=== PATIENT | female | born 1990 | race Caucasian/White ===

== ENCOUNTER 2018-11-06 12:56 | Inpatient (IN) | payer OTHER ==
[2018-11-06] VITALS (9 sets, daily range): BP systolic 133–153; BP diastolic 72–82
[~2018-11-06] VITALS: Ht 152.4 cm; Wt 63.2 kg
[2018-11-06] MEDS ORDERED: LR 1,000 ML IV SCH (13:28)
[2018-11-06] MEDS ORDERED: OXYTOCIN DRIP 30 UNITS in IV 1 EA IV SCH (13:33)
[2018-11-06] MEDS ORDERED: PRENTAB9 PO (13:36)
[2018-11-06] MEDS ORDERED: ACETAMINOPHEN 500 MG TAB PO PRN (13:45)
[2018-11-06] MEDS ORDERED: MEASLES,MUMPS,RUBELLA VACCINE INJ (MMR-II) (90707) SC SCH (13:45)
[2018-11-06] MEDS ORDERED: IBUPROFEN 600 MG TAB PO PRN (13:45)
[2018-11-06] MEDS ORDERED: METHYLERGONOVINE MALEATE 0.2 MG TAB PO PRN (13:45)
[2018-11-06] MEDS ORDERED: ACETAMINOPHEN TAB 650MG DOSE (2X325MG) PO PRN (13:45)
[2018-11-06] MEDS ORDERED: LIDOCAINE 1% MDV 20ML VIAL IM ONE (13:45)
[2018-11-06] MEDS ORDERED: DIBUCAINE 1% OINTMENT 30GM TOP PRN (13:45)
[2018-11-06] MEDS ORDERED: RHOGAM 300 MCG (1500 IU) INJ (J2790) IM SCH (13:45)
[2018-11-06] MEDS ORDERED: DOCUSATE SODIUM 100 MG CAP PO PRN (13:45)
[2018-11-06] MEDS ORDERED: OXYTOCIN 30 UNITS IN 0.9% NaCl 500ML IV BAG (J2590) As Ordered ONE (13:49)
[2018-11-06 14:08] LABS: BASO % 0.2 % (0.0-1.0); EOS % 0.1 % (0.0-3.0); HEMATOCRIT 40.7 % (36.0-47.0); HEMOGLOBIN 13.6 g/dl (12.0-15.5); LYMPH # 1.5 10^3/uL (1.5-5.0); LYMPH % 7.8 % (24.0-44.0); MEAN CORPUSCULAR HEMOGLOBIN 27.3 pg (27.0-33.0); MEAN CORPUSCULAR HGB CONC 33.4 g/dl (32.0-36.5); MEAN CORPUSCULAR VOLUME 81.7 fl (80.0-96.0); MONO # 0.7 10^3/uL (0.0-0.8); MONO % 3.6 % (0.0-5.0); NEUTROPHILS # 16.9 10^3/uL (1.5-8.5); NEUTROPHILS % 87.7 % (36.0-66.0); PLATELET COUNT, AUTOMATED 228 10^3/uL (150-450); RED BLOOD COUNT 4.98 10^6/uL (4.00-5.40); WHITE BLOOD COUNT 19.3 10^3/uL (4.0-10.0)
--- NOTE | 2018-11-06 15:20 | HPEPDOC ---
Obstetrical History & Physical General Date of Admission Nov 06, 2018 at 13:25 History of Present Illness H&P completed after delivery due to rapid progression. OB Considerations: - GDMA1 - Rh Negative: received RhoGAM at 28wks Sadia is a 28yo G1 at 40+2wks by 8wk US (WILLIAM [id number]) presents in labor. She reports contractions started at 0500AM this morning [id number]. She reports that they are closer together, every 2-5mins and feels rectal pressure. course complicated by the above problems. Dstick on admission 96. She denies LOF, however, water broke after moving to labor room. Chief Complaint: Contractions, term Information Provided By: Patient Age: 28 : 1 Term: 0 Pre-term: 0 Abortions: 0 Livin Care Care: Good Care Dating Final EDC: Nov 04, 2018 Antepartum Course Diagnos(e)s Gestational Diabetes, A1 RH negative Past Medical History Past Obstetrical History : Past Obstetrical History: Primgravida Past Medical History Medical History Childhood Asthma Seasonal Allergies Endometriosis Surgical History: [place] teeth Family History Significant Family History: No pertinent family hx Social History Marital Status: Family situation: Spouse/partner home Psychosocial History: No pertinent psych hx * Smoker: non-smoker Alcohol: Denies Drugs: denies Imunizations Tdap status: current Influenza Status: declined Allergies Coded Allergies: No Known Allergies (Verified Allergy, Unknown, 11/06/18) Medications Scheduled No.137/Iron/Folic Acd ( Vitamin Tablet) 1 Each Tablet, 1 TAB PO DAILY Physical Examination Physical Examination GENERAL: Alert and oriented times three. ABDOMEN: Gravid and non-tender to touch. FETUS: Is vertex (VTX) by sterile vaginal examination (SVE), fetus is vertex (VTX) by Bi. EXTREMITIES: No edema. Laboratory Data 24H LABS Laboratory Tests 2 11/06/18 13:31: Serology Scanned Report Hepatitis B Testing Urine Culture: No Growth Pertinent Laboratoy Data Blood Type: O- RBC Antibody Screen: Negative HIV: Negative Hepatitis B: Negative Hepatitis C: Unknown Rapid Plasma Reagin: Nonreactive Rubella: Immune Varicella: Immune Chlamydia/Gonorrhea: Negative Group B Streptococcus: Negative Quad Screen Test: Negative Cystic Fibrosis: Unknown Anatomy Ultrasound Placenta Location: Anterior Normal Anatomy: Yes Placenta Previa: No Estimated Weight (grams): 3400 Other Ultrasounds [id number] Steroid Therapy Steroid Therapy: No Vaginal Examination Dilation: 7 cm Effacement: 90% Station: 0 Cervical Consistency: Soft Cervical Position: Middle Presentation: Cephalic presentation Position: Vertex (occiput) Assessment Heart Rate (FHR): 120 Variability: Moderate Accelerations: Positive Decelerations: None Tocometer Contractions: Yes Frequency: regular, every 1-3 min. Duration: greater than 60 seconds Strength: palpated as strong Multi-drug resistant Organism: No history of MDRO Assessment/Plan Assessment [Sadia] is a [28]-year-old (G)[1] para (P)[0]-[0]-[0]-[0] at [40]+[2] weeks by [8]-week ultrasound. Presents to Labor and Delivery (L&D) [in active labor]. She proceed to deliver after moving to labor room. For details, see delivery summary. Plan Admit and orient. Patient Consumer Marketer and consent. Verbally. Diet: [Regular after delivery]. Group B Streptococcus (GBS) [negative]. Labs and intravenous (IV) per unit protocol. Lactated Ringers (LR): [125] mL/hr. Delivered Male infant [Gaetano]. Unasyn 1.5mg x1. 20ml of 1% lidocaine plain. Routine care and orders. Cinthia Magdaleno DO. CINTHIA MAGDALENO DO Nov 06, 2018 15:12
--- NOTE | 2018-11-06 15:38 | DNPDOC ---
[facility] Delivery Note Delivery Note DATE OF DELIVERY: [[id number]] PREDELIVERY DIAGNOSIS: [40]-[2]/7 weeks' gestation and labor. POST DELIVERY DIAGNOSIS: Delivered. PROCEDURE: [Spontaneous vaginal delivery/ section]. FUR MIXER: Dr. Mccormack] ANESTHESIA: [None]. ESTIMATED BLOOD LOSS: [200] mL. FINDINGS: [3520] grams [male] , Score [8]/[9], nuchal cord times [1 - Loose, spontaneous reduced]. DELIVERY SUMMARY: Patient is a [28]-year-old [1] now para [1]-[0]-[0]-[1] who was admitted to labor and delivery for [labor]. She presented in active labor and quickly proceed to C/C/+2. She then pushed, to +3. Due to tight introitus and infant heart rate down to the 70-80s, a midline episiotomy was performed which resulted in delivery over the next contraction. Infant delivered OA, restituted SUHA. Loose nuchal x1, spontaneously reduce during delivery of the body. Left anterior shoulder delivered with gentle downward traction and the rest of the body delivered spontaneously and placed on maternal abdomen. Infant cried spontaneously. Delayed cord clamping was observed, the cord was doubly clamped, and cut by father of . Cord blood was collected per protocol. The placenta was delivered, tono, 3vc, intact, with gentle downward traction. Systematic inspection of the perineum was performed and a midline 3A vaginal lac eration and bilateral sulcal lacerations. 20ml of 1% Lidocaine was injected along the lacerations. 0-Vicryl was used to re-enforce sphincter capsule and to close deep right gluteal space. The sulcal lacerations were repaired with 3-0 vicryl, running locking fashion. The 2nd degree was repair with 3-0 vicryl in usual fashion. Dr. Myles was present and assisted with the repair. Good reapproximation was noted. Mother and baby stable and bonding when physician left the room. EBL 200cc Lap and Needle counts were correct x2. KALINA MAGDALENO. DO Nov 06, 2018 15:38
[2018-11-06] MEDS ORDERED: AMPICILLIN SOD/SULBACTAM SOD 1.5 GM in D5W MINI-BAG PLUS 50 ML IV ONE (16:00)
[2018-11-06] MEDS ORDERED: SLF 3 ML SYR IV PRN (16:45)
[2018-11-06 18:31] LABS: ALT/SGPT 16 U/L (12-78); BILIRUBIN,TOTAL 0.4 MG/DL (0.2-1.0); CREATININE FOR GFR 0.63 MG/DL (0.55-1.30); GLOMERULAR FILTRATION RATE > 60.0 (>60); LDH LACTATE DEHYDROGENASE 242 U/L (84-246); URIC ACID 4.7 MG/DL (2.6-6.0)
[2018-11-06] MEDS: IBUPROFEN 800 MG TAB PO PRN (19:20)
[2018-11-06] MEDS: MIRALAX *UNIT DOSE* 17GM PACKET PO SCH (21:03)
[2018-11-06] MEDS ORDERED: SLF 3 ML SYR IV SCH (22:00)
--- NOTE | 2018-11-07 04:56 | IPNPDOC ---
Progress Note Date of Service: Nov 07, 2018 Day#: 1 Progress Note SUBJECT: Sadia is a [28]-year-old [1] now Para [1]-[0]-[0]-[1] status post spontaneous vaginal delivery complicated by a 3A vaginal laceration after midline episiotomy at [40]-[2]/7 weeks' on [id number] of a [Male] [3520] grams with post vaginal laceration and repair, doing well day # [1]. She has been ambulating, voiding spontaneously without issue and tolerating regular diet. Breast feeding without issue. Reports lochia is [like a normal period]. Patient is ambulating well. [Reports some cramping with . Denies any pain. Voiding and passing flatus without difficulty]. OBJECTIVE: VITAL SIGNS: Within normal limits, afebrile. Alert and oriented times three. Breath sounds clear to auscultation. Heart rate: Regular rate and rhythm, no murmurs, rubs or gallops. Abdomen: Fundus firm at U-1. Soft, NTTP. : [Minimal] lochia. Labial edema noted, intact suture line without evidence of hematoma. ASSESSMENT: Sadia is a [28]-year-old [1] now Para [1]-[0]-[0]-[1] status post spontaneous vaginal delivery complicated by a 3A vaginal laceration after midline episiotomy after presenting in active labor, delivered on 06Nov2018 and [40]-[2]/7 weeks', doing well on day [1]. Vitals within normal limits, afebrile, hemodynamically stable with no evidence of infection. Had mild range blood pressures when she presented in labor, unmedicated. Labs obtained were WNL. After delivery, patient is now normotensive. PLAN: 1. Continue routine care and oralia-care. 2. Tylenol and Motrin for pain. 3. Encourage breast feeding and ambulation. 4. [Considering Mirena IUD] for contraception at 6 weeks . 5. Continue Miralax BID for soft bowel movements. 6. Discharge to home tomorrow 08Nov2018. VS, I&O, 24H, Fishbone Vital Signs/I&O Vital Signs Date Time Temp Pulse Resp B/P (MAP) Pulse Ox O2 Delivery O2 Flow Rate FiO2 11/06/18 18:00 98.3 95 14 135/78 (97) 98 I&O- Last 24 Hours up to 6 AM 11/07/18 05:59 Intake Total 800 ml Output Total 700 ml Balance 100 ml Laboratory Data 24H LABS Laboratory Tests 2 11/06/18 13:31: Serology Scanned Report Hepatitis B Testing 11/06/18 13:51: Immature Granulocyte % (Auto) 0.6, White Blood Count 19.3H, Red Blood Count 4.98, Hemoglobin 13.6, Hematocrit 40.7, Mean Corpuscular Volume 81.7, Mean Corpuscular Hemoglobin 27.3, Mean Corpuscular Hemoglobin Concent 33.4, Red Cell Distribution Width 15.7H, Platelet Count 228, Neutrophils (%) (Auto) 87.7H, Lymphocytes (%) (Auto) 7.8L, Monocytes (%) (Auto) 3.6, Eosinophils (%) (Auto) 0.1, Basophils (%) (Auto) 0.2, Neutrophils # (Auto) 16.9H, Lymphocytes # (Auto) 1.5, Monocytes # (Auto) 0.7, Eosinophils # (Auto) 0.0, Basophils # (Auto) 0.0, Nucleated Red Blood Cells % (auto) 0.0, Glomerular Filtration Rate > 60.0, Creatinine 0.63, Aspartate Amino Transf (AST/SGOT) 21, Alanine Aminotransferase (ALT/SGPT) 16, Lactate Dehydrogenase 242, Total Bilirubin 0.4, Uric Acid 4.7 11/06/18 13:56: Bedside Glucose (Misc Panel) 96 CBC/BMP Laboratory Tests 11/06/18 13:51 Red Blood Count 4.98, Mean Corpuscular Volume 81.7, Mean Corpuscular Hemoglobin 27.3, Mean Corpuscular Hemoglobin Concent 33.4, Red Cell Distribution Width 15.7 H, Neutrophils (%) (Auto) 87.7 H, Lymphocytes (%) (Auto) 7.8 L, Monocytes (%) (Auto) 3.6, Eosinophils (%) (Auto) 0.1, Basophils (%) (Auto) 0.2, Neutrophils # (Auto) 16.9 H, Lymphocytes # (Auto) 1.5, Monocytes # (Auto) 0.7, Eosinophils # (Auto) 0.0, Basophils # (Auto) 0.0, Aspartate Amino Transf (AST/SGOT) 21, Alanine Aminotransferase (ALT/SGPT) 16, Lactate Dehydrogenase 242, Total Bilirubin 0.4, Uric Acid 4.7 KALINA MAGDALENO DO Nov 07, 2018 04:56
[2018-11-07] MEDS: IBUPROFEN 800 MG TAB PO PRN ×2 (06:09→17:50)
[2018-11-07 06:11] VITALS: BP 121/68
[2018-11-07 07:27] LABS: HEMATOCRIT 33.6 % (36.0-47.0); MEAN CORPUSCULAR HEMOGLOBIN 28.5 pg (27.0-33.0); MEAN CORPUSCULAR HGB CONC 33.6 g/dl (32.0-36.5); MEAN CORPUSCULAR VOLUME 84.8 fl (80.0-96.0); PLATELET COUNT, AUTOMATED 151 10^3/uL (150-450); RED BLOOD COUNT 3.96 10^6/uL (4.00-5.40); WHITE BLOOD COUNT 18.9 10^3/uL (4.0-10.0)
[2018-11-07 07:38] LABS: HEMOGLOBIN 11.3 g/dl (12.0-15.5)
[2018-11-07] MEDS: PRENATAL VITAMINS CHEWABLE TABLET PO SCH (09:04)
[2018-11-07] MEDS: MIRALAX *UNIT DOSE* 17GM PACKET PO SCH ×2 (09:20→23:09)
[2018-11-07] MEDS ORDERED: IBUP80TA PO (21:38)
[2018-11-07] MEDS ORDERED: MIRA3350 PO (21:38)
[2018-11-07] MEDS ORDERED: APAP325T4 PO (21:38)
[2018-11-08] MEDS: IBUPROFEN 800 MG TAB PO PRN (05:24)
[2018-11-08 05:42] VITALS: BP 131/73
[2018-11-08] MEDS ORDERED: PRENTAB9 PO (07:10)
--- NOTE | 2018-11-08 07:39 | OBDS ---
[facility] Obstetrical Discharge Sum. Obstetrical Discharge Summary Life Enrichment Manager/Provider: KALINA MAGDALENO DO Date: Nov 08, 2018 Time: 07:32 : 1 Term: 1 Pre-term: 0 Abortions: 0 Livin VDRL: Non-Reactive Rh: Negative Rubella: Immune Infant Sex: Male Weight: grams (3520) Anesthesia: Local Anesthesia Episiotomy Midline A/P, Post Course List any complications Admission diagnosis: Active Labor at Term. Discharge diagnosis: Active Labor at Term. Single Live . Condition at Discharge: [good] Discharge Instructions: [Home] Activity: [Regular] Diet: [Regular] Medications: [Ibuprofen, Tylenol, Miralax] Follow-up: [2 weeks for incision check, 6 weeks ] Hospital Course: Sadia is a [28]-year-old [1] now Para [1]-[0]-[0]-[1] status post spontaneous vaginal delivery complicated by a 3A vaginal laceration after midline episiotomy at [40]-[2]/7 weeks' on 06Nov2018 of a [Male] [3520] grams. She have an uncomplicated course. She is ambulating and tolerating a regular diet. She remained afebrile throughout the hospital stay and met all criteria for discharge on day 2. OBJECTIVE: VITAL SIGNS: Within normal limits, afebrile. Alert and oriented times three. Abdomen: Fundus firm at U-1. Soft, NTTP. : [Minimal] lochia. Labial edema noted - significant improved, intact suture line without evidence of hematoma. DO SHARLA Bryan CRYSTAL B. DO Nov 08, 2018 07:39
[2018-11-08] MEDS: MIRALAX *UNIT DOSE* 17GM PACKET PO SCH (08:45)
[2018-11-08] MEDS: PRENATAL VITAMINS CHEWABLE TABLET PO SCH (08:45)
--- NOTE | 2018-11-15 11:15 | IPN ---
DATE OF SERVICE: 11/06/2018 This patient requested circumcision of her male . After discussing the risks and benefits of circumcision, the medical and nonmedical indications, penile block and aftercare, expressed understanding of penile block aftercare and bleeding, signed the consent form. All questions were answered. 20-minute discussion. We await clearance by the bottom cager.
== END 2018-11-08 12:00 | disposition home or self-care (01) | DRG 768 ==
LOC: M LDO 12:56 → M LDI 13:25 → M OBS 17:11 → M PED 11-07 20:00
PROVIDERS: ADMIT Obstetrics & Gynecology; ATTEND Obstetrics & Gynecology
PROC: 0DQR0ZZ Repair Anal Sphincter, Open Approach (ICD-10-PCS; principal; 2018-11-06)
PROC: 10E0XZZ Delivery of Products of Conception, External Approach (ICD-10-PCS; 2018-11-06)
PROC: 0KQM0ZZ Repair Perineum Muscle, Open Approach (ICD-10-PCS; 2018-11-06)
PROC: 0W8NXZZ Division of Female Perineum, External Approach (ICD-10-PCS; 2018-11-06)
DX: O48.0 Post-term pregnancy (principal); Z37.0 Single live birth; O70.21 Third degree perineal laceration during delivery, IIIa; Z3A.40 40 weeks gestation of pregnancy; O69.81X0 Labor and delivery complicated by cord around neck, without compression, not applicable or unspecified; O62.3 Precipitate labor; O70.1 Second degree perineal laceration during delivery; O24.420 Gestational diabetes mellitus in childbirth, diet controlled

== ENCOUNTER 2019-01-05 19:38 | Emergency (ER) | payer OTHER ==
[~2019-01-05] VITALS: Ht 152.4 cm; Wt 52.3 kg
[~2019-01-05 19:38] MED LIST: APAP325T4 PO; IBUP80TA PO; MIRA3350 PO; PRENTAB9 PO
[2019-01-05] MEDS ORDERED: MIRE1IUD IU (19:46)
[2019-01-05] MEDS ORDERED: TETRACAINE 0.5% OPHTH SOLN 4ML OU ONE (20:15)
[2019-01-05] MEDS ORDERED: FLUORESCEIN OPHTH 1 MG STRIP OU ONE (20:15)
[2019-01-05] MEDS ORDERED: PATA2.5S OD (20:48)
[2019-01-05] MEDS ORDERED: OLOPATADINE 0.1% OPHTH SOL 5ML(PATANOL) OD STA (20:53)
[2019-01-05 21:12] VITALS: BP 113/71
== END 2019-01-05 21:17 | disposition home or self-care (01) ==
LOC: M ED 19:38
DX: H11.421 Conjunctival edema, right eye (principal)

== ENCOUNTER 2020-04-14 13:38 | Emergency (ER) | payer OTHER ==
[~2020-04-14] VITALS: Ht 152.4 cm; Wt 55.8 kg
[~2020-04-14 13:38] MED LIST changes: +MIRE1IUD IU; +PATA2.5S OD
--- OUTSIDE RECORDS SUMMARY | 2020-04-14 13:45 | CCD ---
Author Author [facility] Organization [facility] Address Unknown Phone Unavailable Support Name Relationship Address Phone WATNANIMAL Next Of Kin [address] [place] [address] [place] Next Of Kin [address] [place] [address] Re-disclosure Warning The records that you are about to access may contain information from federally-assisted alcohol or drug abuse programs. If such information is present, then the following federally mandated warning applies: This information has been disclosed to you from records protected by federal confidentiality rules (42 CFR part 2). The federal rules prohibit you from making any further disclosure of this information unless further disclosure is expressly permitted by the written consent of the person to whom it pertains or as otherwise permitted by 42 CFR part 2. A general authorization for the release of medical or other information is NOT sufficient for this purpose. The Federal rules restrict any use of the information to criminally investigate or prosecute any alcohol or drug abuse patient.The records that you are about to access may contain highly sensitive health information, the redisclosure of which is protected by Article 27-F of the [facility] Public Health law. If you continue you may have access to information: Regarding HIV / AIDS; Provided by facilities licensed or operated by the [facility] Office of Mental Health; or Provided by the [facility] Office for People With Developmental Disabilities. If such information is present, then the following [facility] mandated warning applies: This information has been disclosed to you from confidential records which are protected by state law. State law prohibits you from making any further disclosure of this information without the specific written consent of the person to whom it pertains, or as otherwise permitted by law. Any unauthorized further disclosure in violation of state law may result in a fine or half-way sentence or both. A general authorization for the release of medical or other information is NOT sufficient authorization for further disc losure. Insurance Providers Payer name Policy type / Coverage type Policy ID Covered democrat ID Covered democrat's relationship to posey Policy Posey Plan Information [facility] [id number] 2 [id number] Results ID Date Data Source [id number] 03/07/2020 12:00:00 AM EST [place] Name Value Range Interpretation Code Description Data Nidia rce(s) Supporting Document(s) SARS-CoV2 Rapid Antigen [facility] and reported by [facility]. Procedure
[2020-04-14] MEDS ORDERED: IBUP-1114 PO (13:46)
[2020-04-14] MEDS ORDERED: AUGM875T28 PO (15:48)
--- OUTSIDE RECORDS SUMMARY | 2020-04-14 15:48 | CCD ---
Author Author [facility] Organization [facility] Address Unknown Phone Unavailable Support Name Relationship Address Phone WATNANIMAL Next Of Kin [address] [place] [address] [place] Next Of Kin [address] [place] [address] Re-disclosure Warning The records that you are [...] is protected by Article 27-F of the [facility] Public Health law. If you continue you may have access to information: Regarding HIV / AIDS; Provided by facilities licensed or operated by the [facility] Office of Mental Health; or Provided by the [facility] Office for People With Developmental Disabilities. If such information is present, then the following [facility] mandated warning applies: This information [...] law may result in a fine or longterm sentence or both. A general authorization for the release of medical or other information is NOT sufficient authorization for further disc losure. Insurance Providers Payer name Policy type / Coverage type Policy ID Covered alliance party ID Covered alliance party's relationship to posey Policy Posey Plan Information [facility] [id number] [facility] [id number] Results ID Date Data Source [id number] 03/07/2020 12:00:00 AM EST [place] Name Value Range Interpretation Code Description Data Nidia rce(s) Supporting Document(s) SARS-CoV2 Rapid Antigen Negative [facility] This lab was [facility] and reported by [facility]. Procedure
[2020-04-14 16:00] VITALS: BP 141/82
== END 2020-04-14 16:01 | disposition home or self-care (01) ==
LOC: M ED 13:38
DX: S61.452A Open bite of left hand, initial encounter (principal); W55.01XA Bitten by cat, initial encounter; Y92.9 Unspecified place or not applicable; Y93.9 Activity, unspecified; Y99.9 Unspecified external cause status

== ENCOUNTER 2021-02-12 07:01 | Inpatient (IN) | payer OTHER ==
[2021-02-12] VITALS (7 sets, daily range): BP systolic 112–135; BP diastolic 59–80
[~2021-02-12] VITALS: Ht 152.4 cm; Wt 66.5 kg
[~2021-02-12 07:01] MED LIST changes: +AUGM875T28 PO; +IBUP-1114 PO; +MULTTAB20 PO
[2021-02-12] MEDS ORDERED: OXYTOCIN INJ 10 UNITS/ML VIAL (J2590) As Ordered ONE (07:30)
[2021-02-12] MEDS ORDERED: dexameTHASONE 4 MG/ML 1ML VIAL (J1100 PER 1MG) As Ordered ONE (07:30)
[2021-02-12] MEDS ORDERED: KETOROLAC 60MG 2ML VIAL As Ordered ONE (07:30)
[2021-02-12] MEDS ORDERED: fentaNYL 100 MCG/2 ML INJECTION As Ordered ONE (07:30)
[2021-02-12] MEDS ORDERED: MORPHINE PRES-FREE INJ 10 MG/10 ML VIAL (J2274) As Ordered ONE (07:30)
[2021-02-12] MEDS ORDERED: ONDANSETRON 4MG/2ML VIAL As Ordered ONE (07:30)
[2021-02-12] MEDS ORDERED: LACTATED RINGER'S 500 ML IV ONE (07:35)
[2021-02-12] MEDS ORDERED: ceFAZolin SOD 2 GM in IV 1 EA IV ONE (07:35)
[2021-02-12] MEDS ORDERED: BICITRA 30ML SOLN UDC PO ONE (07:35)
[2021-02-12] MEDS: LR 1,000 ML IV SCH ×2 (07:58→14:32)
[2021-02-12 08:06] LABS: HEMATOCRIT 36.9 % (36.0-47.0); MEAN CORPUSCULAR HGB CONC 32.5 g/dl (32.0-36.5); MEAN CORPUSCULAR VOLUME 83.1 fl (80.0-96.0); PLATELET COUNT, AUTOMATED 182 10^3/uL (150-450); RED BLOOD COUNT 4.44 10^6/uL (4.00-5.40); WHITE BLOOD COUNT 11.2 10^3/uL (4.0-10.0)
[2021-02-12] MEDS ORDERED: NALBUPHINE HCL 10 MG/ML AMP (J2300) IV PRN ×2 (09:49→11:25)
[2021-02-12] MEDS ORDERED: diphenhydrAMINE 50MG/ML VIAL (J1200) IV PRN (09:49)
[2021-02-12] MEDS ORDERED: ONDANSETRON 4MG/2ML VIAL IV PRN ×3 (09:49→11:25)
[2021-02-12] MEDS ORDERED: NALOXONE INJ 0.4MG/1ML VIAL (J2310 PER 1MG) IV PRN ×2 (09:49)
[2021-02-12] MEDS ORDERED: METOCLOPRAMIDE INJ 10MG/2ML VIAL (J2765 PER 1) IV PRN (09:49)
[2021-02-12] MEDS ORDERED: ePHEDrine SULFATE 25 MG/5 ML(5MG/ML) SYRINGE As Ordered ONE (10:32)
[2021-02-12] MEDS ORDERED: METOCLOPRAMIDE INJ 10MG/2ML VIAL (J2765 PER 1) As Ordered ONE (10:32)
[2021-02-12] MEDS ORDERED: PHENYLephrine 500MCG 5ML (100MCG/ML) SYRINGE As Ordered ONE (10:32)
[2021-02-12] MEDS ORDERED: OXYTOCIN 30 UNITS IN 0.9% NaCl 500ML IV BAG (J2590) As Ordered ONE (10:39)
[2021-02-12] MEDS ORDERED: oxyCODONE 5MG TAB PO PRN ×2 (10:50→11:25)
[2021-02-12] MEDS ORDERED: METHYLERGONOVINE MALEATE 0.2 MG/ML VIAL (J2210) IM PRN (10:50)
[2021-02-12] MEDS ORDERED: MOM 30ML SUSPENSION UDC PO PRN (10:50)
[2021-02-12] MEDS ORDERED: RHOGAM 300 MCG (1500 IU) INJ (J2790) IM SCH (10:50)
[2021-02-12] MEDS ORDERED: SIMETHICONE 80MG CHEW TAB PO PRN (10:50)
[2021-02-12] MEDS ORDERED: METHYLERGONOVINE MALEATE 0.2 MG TAB PO PRN (10:50)
[2021-02-12] MEDS ORDERED: OXYTOCIN DRIP 30 UNITS in IV 1 EA IV SCH ×4 (10:50)
[2021-02-12] MEDS ORDERED: ACETAMINOPHEN 500 MG TAB PO PRN (10:50)
[2021-02-12] MEDS ORDERED: HYDROMORPHONE HCL 0.5 MG/ 0.5 ML SYRINGE (J1170 PER 1) IV PRN (11:25)
[2021-02-12] MEDS ORDERED: fentaNYL 100 MCG/2 ML INJECTION IV PRN (11:25)
[2021-02-12] MEDS ORDERED: MEPERIDINE INJ 25 MG/ML VIAL (J2175) IV PRN (11:25)
[2021-02-12] MEDS: oxyCODONE 5MG TAB PO PRN (14:32)
[2021-02-12] MEDS: KETOROLAC 30 MG/ML 1ML VIAL IV SCH ×2 (16:07→21:47)
[2021-02-12] MEDS: DOCUSATE SODIUM 100MG CAPSULE PO SCH (21:46)
[2021-02-13 02:00] VITALS: BP 129/72
[2021-02-13] MEDS: KETOROLAC 30 MG/ML 1ML VIAL IV SCH (03:26)
[2021-02-13 06:00] VITALS: BP 132/79
[2021-02-13] MEDS: DOCUSATE SODIUM 100MG CAPSULE PO SCH ×2 (08:01→20:26)
[2021-02-13] MEDS: oxyCODONE 5MG TAB PO PRN ×2 (08:02→17:36)
[2021-02-13] MEDS: PRENATAL VITAMINS CHEWABLE TABLET PO SCH (08:02)
[2021-02-13 08:37] LABS: HEMATOCRIT 33.7 % (36.0-47.0); HEMOGLOBIN 10.9 g/dl (12.0-15.5); MEAN CORPUSCULAR HGB CONC 32.3 g/dl (32.0-36.5); MEAN CORPUSCULAR VOLUME 83.4 fl (80.0-96.0); PLATELET COUNT, AUTOMATED 151 10^3/uL (150-450); RED BLOOD COUNT 4.04 10^6/uL (4.00-5.40); WHITE BLOOD COUNT 14.8 10^3/uL (4.0-10.0)
[2021-02-13 10:00] VITALS: BP 129/71
[2021-02-13] MEDS: IBUPROFEN 800 MG TAB PO SCH ×2 (11:52→20:26)
[2021-02-13 14:00] VITALS: BP 134/81
[2021-02-13 17:50] VITALS: BP 128/67
[2021-02-13 22:00] VITALS: BP 133/73
[2021-02-14] MEDS: oxyCODONE 5MG TAB PO PRN ×2 (00:05→09:22)
[2021-02-14 04:00] VITALS: BP 125/64
[2021-02-14] MEDS: IBUPROFEN 800 MG TAB PO SCH ×2 (04:17→11:53)
[2021-02-14] MEDS ORDERED: ACET-683 PO (05:35)
[2021-02-14] MEDS ORDERED: OXYC-517 PO (05:35)
[2021-02-14] MEDS ORDERED: IBUP80TA PO (05:35)
[2021-02-14 06:00] VITALS: BP 131/72
[2021-02-14] MEDS: DOCUSATE SODIUM 100MG CAPSULE PO SCH (08:49)
[2021-02-14] MEDS: PRENATAL VITAMINS CHEWABLE TABLET PO SCH (08:49)
[2021-02-14 10:16] VITALS: BP 138/82
== END 2021-02-14 12:55 | disposition home or self-care (01) | DRG 773 ==
LOC: M LDI 07:01 → M OBS 14:16
PROVIDERS: ADMIT Obstetrics & Gynecology; ATTEND Obstetrics & Gynecology
PROC: 10D00Z1 Extraction of Products of Conception, Low, Open Approach (ICD-10-PCS; principal; 2021-02-12 09:30)
DX: O99.344 Other mental disorders complicating childbirth (principal); F43.8 Other reactions to severe stress; O09.293 Supervision of pregnancy with other poor reproductive or obstetric history, third trimester; Z37.0 Single live birth; Z3A.39 39 weeks gestation of pregnancy

== ENCOUNTER → 2021-12-11 | Outpatient (CLI) | payer OTHER ==
[~2021-12-11] MED LIST changes: +ACET-683 PO; +OXYC-517 PO
[2021-12-11 16:36] LABS: BASO % 0.3 % (0.0-1.0); EOS % 0.4 % (0.0-3.0); HEMATOCRIT 38.4 % (36.0-47.0); HEMOGLOBIN 12.4 g/dl (12.0-15.5); LYMPH % 20.9 % (24.0-44.0); MEAN CORPUSCULAR HGB CONC 32.3 g/dl (32.0-36.5); MEAN CORPUSCULAR VOLUME 86.7 fl (80.0-96.0); MONO # 0.5 10^3/uL (0.0-0.8); MONO % 4.8 % (2.0-8.0); NEUTROPHILS # 6.9 10^3/uL (1.5-8.5); NEUTROPHILS % 73.3 % (36.0-66.0); PLATELET COUNT, AUTOMATED 214 10^3/uL (150-450); RED BLOOD COUNT 4.43 10^6/uL (4.00-5.40); WHITE BLOOD COUNT 9.4 10^3/uL (4.0-10.0)
[2021-12-11 17:18] LABS: BLOOD UREA NITROGEN 13 MG/DL (7-18); CALCIUM LEVEL 8.9 MG/DL (8.5-10.1); CARBON DIOXIDE LEVEL 27 MEQ/L (21-32); CHLORIDE LEVEL 105 MEQ/L (98-107); CREATININE FOR GFR 0.76 MG/DL (0.55-1.30); GLOMERULAR FILTRATION RATE > 60.0 (>60); GLUCOSE, FASTING 128 MG/DL (70-100); SODIUM LEVEL 138 MEQ/L (136-145)
[2021-12-11 17:19] LABS: ALBUMIN 3.9 GM/DL (3.2-5.2); ALT/SGPT 28 U/L (12-78); BILIRUBIN,TOTAL 0.5 MG/DL (0.2-1.0); TOTAL PROTEIN 7.3 GM/DL (6.4-8.2)
[2021-12-11 17:38] LABS: TOTAL 25(OH) VITAMIN D 32.3 NG/ML (30.0-100.0); VITAMIN B12 LEVEL 727 PG/ML (247-911)
== END ==
LOC: M WUC 13:26
PROVIDERS: ATTEND Physician Assistant
DX: R63.4 Abnormal weight loss (principal); R53.83 Other fatigue

== ENCOUNTER → 2022-06-11 | Outpatient (CLI) | payer OTHER | LOC: M WHC 02-19 09:08 | PROVIDERS: ATTEND Student in an Organized Health Care Education/Training Program | DX: Z12.31 Encounter for screening mammogram for malignant neoplasm of breast (principal) ==

== ENCOUNTER → 2022-06-25 | Outpatient (CLI) | payer OTHER | LOC: M WHC 12:35 | PROVIDERS: ATTEND Student in an Organized Health Care Education/Training Program | DX: R92.8 Other abnormal and inconclusive findings on diagnostic imaging of breast (principal) | CPT/HCPCS: 76642; 77065; G0279 ==

== ENCOUNTER → 2023-01-21 | Outpatient (CLI) | payer OTHER ==
[~2023-01-21] MED LIST changes: +PROHANCE 279.3MG/ML 5ML VIAL ONE
== END ==
LOC: M PLAIMG 08:27
PROVIDERS: ATTEND Student in an Organized Health Care Education/Training Program
DX: R92.8 Other abnormal and inconclusive findings on diagnostic imaging of breast (principal)
CPT/HCPCS: A9576; C8908

== ENCOUNTER → 2023-04-22 | Outpatient (CLI) | payer OTHER ==
[~2023-04-22] MED LIST changes: -PROHANCE 279.3MG/ML 5ML VIAL ONE
== END ==
LOC: M WHC 08:31
PROVIDERS: ATTEND Family Medicine
DX: Z97.5 Presence of (intrauterine) contraceptive device (principal); N93.9 Abnormal uterine and vaginal bleeding, unspecified

== ENCOUNTER 2023-05-22 20:40 | Emergency (ER) | payer OTHER ==
[~2023-05-22] VITALS: Ht 152.4 cm; Wt 55.2 kg
[2023-05-22] MEDS ORDERED: CIPR-249 PO (23:24)
[2023-05-22] MEDS: CIPROFLOXACIN 500MG TABLET PO ONE (23:44)
[2023-05-22 23:49] VITALS: BP 119/68; TEMP 97.7; O2SAT 99
== END 2023-05-22 23:56 | disposition home or self-care (01) ==
LOC: M ED 20:40
DX: S80.922A Unspecified superficial injury of left lower leg, initial encounter (principal); Y99.0 Civilian activity done for income or pay; Y92.9 Unspecified place or not applicable; Y93.9 Activity, unspecified; W55.01XA Bitten by cat, initial encounter; Z79.1 Long term (current) use of non-steroidal anti-inflammatories (NSAID); Z79.2 Long term (current) use of antibiotics

== ENCOUNTER → 2023-07-08 | Outpatient (CLI) | payer OTHER ==
[~2023-07-08] MED LIST changes: +CIPR-249 PO
== END ==
LOC: M WHC 07:41
PROVIDERS: ATTEND Nurse Practitioner Family
DX: Z12.31 Encounter for screening mammogram for malignant neoplasm of breast (principal); R92.343 Mammographic extreme density, bilateral breasts; Z80.3 Family history of malignant neoplasm of breast

== ENCOUNTER → 2023-09-23 | Outpatient (CLI) | payer OTHER ==
[2023-09-23 13:11] LABS: BASO % 0.5 % (0.0-1.0); EOS % 0.5 % (0.0-3.0); HEMATOCRIT 40.9 % (36.0-47.0); HEMOGLOBIN 13.4 g/dl (12.0-15.5); LYMPH # 1.6 10^3/uL (1.5-5.0); LYMPH % 20.9 % (24.0-44.0); MEAN CORPUSCULAR HEMOGLOBIN 28.2 pg (27.0-33.0); MEAN CORPUSCULAR HGB CONC 32.8 g/dl (32.0-36.5); MEAN CORPUSCULAR VOLUME 85.9 fl (80.0-96.0); MONO # 0.5 10^3/uL (0.0-0.8); MONO % 6.9 % (2.0-8.0); NEUTROPHILS # 5.5 10^3/uL (1.5-8.5); NEUTROPHILS % 70.9 % (36.0-66.0); PLATELET COUNT, AUTOMATED 229 10^3/uL (150-450); RED BLOOD COUNT 4.76 10^6/uL (4.00-5.40); WHITE BLOOD COUNT 7.7 10^3/uL (4.0-10.0)
[2023-09-23 13:35] LABS: ALBUMIN 4.2 G/DL (3.2-5.2); ALKALINE PHOSPHATASE 55 U/L (46-116); ALT/SGPT 16 U/L (7.0-40); AST/SGOT 11 U/L (<34); BILIRUBIN,TOTAL 0.9 MG/DL (0.3-1.2); BLOOD UREA NITROGEN 9 MG/DL (9-23); CALCIUM LEVEL 9.4 MG/DL (8.5-10.1); CARBON DIOXIDE LEVEL 27 MMOL/L (20-31); CHLORIDE LEVEL 108 MMOL/L (98-107); CREATININE FOR GFR 0.64 MG/DL (0.55-1.30); GLOMERULAR FILTRATION RATE > 60.0 (>60); GLUCOSE, FASTING 83 MG/DL (60-100); MAGNESIUM LEVEL 2.2 MG/DL (1.8-2.4); POTASSIUM SERUM 4.7 MMOL/L (3.5-5.1); SODIUM LEVEL 138 MMOL/L (136-145); TOTAL PROTEIN 7.2 G/DL (5.7-8.2)
[2023-09-23 13:36] LABS: FREE T4 1.27 NG/DL (0.89-1.76)
[2023-09-23 13:37] LABS: THYROID STIMULATING HORMONE 1.204 uIU/ML (0.55-4.78)
== END ==
LOC: M PLALAB 09:58
PROVIDERS: ATTEND Physician Assistant Medical
DX: R00.2 Palpitations (principal)

== ENCOUNTER → 2024-01-06 | Outpatient (CLI) | payer OTHER ==
[~2024-01-06] MED LIST changes: +PROHANCE 279.3MG/ML 5ML VIAL ONE
== END ==
LOC: M PLAIMG 10:26
PROVIDERS: ATTEND Nurse Practitioner Family
DX: Z80.3 Family history of malignant neoplasm of breast (principal); Z15.01 Genetic susceptibility to malignant neoplasm of breast

== ENCOUNTER → 2024-01-20 | Outpatient (CLI) | payer OTHER ==
[~2024-01-20] MED LIST changes: -PROHANCE 279.3MG/ML 5ML VIAL ONE
== END ==
LOC: M WHC 09:30
PROVIDERS: ATTEND Nurse Practitioner Family
DX: Z80.3 Family history of malignant neoplasm of breast (principal); R92.8 Other abnormal and inconclusive findings on diagnostic imaging of breast; N63.10 Unspecified lump in the right breast, unspecified quadrant; Z15.01 Genetic susceptibility to malignant neoplasm of breast

== ENCOUNTER → 2025-02-15 | Outpatient (REF) | payer OTHER | LOC: M PLALAB 11:50 | PROVIDERS: ATTEND Obstetrics & Gynecology | DX: O09.521 Supervision of elderly multigravida, first trimester (principal) ==

== ENCOUNTER → 2025-02-21 | Outpatient (CLI) | payer OTHER ==
[2025-02-21 15:17] LABS: PLATELET COUNT, AUTOMATED 239 10^3/uL (150-450)
[2025-02-21 16:22] LABS: Trichomonas vaginalis (AMP) NOT DETECTED (NEGATIVE)
[2025-02-21 16:46] LABS: GC DNA AMPLIFICATION NEGATIVE (NEGATIVE)
[2025-02-22 01:38] LABS: HIV 1&2 SCREEN NEGATIVE (NEGATIVE)
[2025-02-22 01:46] LABS: HEPATITIS C VIRUS ABY INDEX 0.04 INDEX (<0.8)
== END ==
LOC: M PLALAB 13:35
PROVIDERS: ATTEND Obstetrics & Gynecology
DX: O09.521 Supervision of elderly multigravida, first trimester (principal); Z3A.00 Weeks of gestation of pregnancy not specified